=== PATIENT | male | born 1950 | race African-American/Black ===

== ENCOUNTER → 2016-10-06 | Outpatient (CLI) | payer BC ==
[~2016-10-06] MED LIST: AMLO5TAB4 PO; CHOL100046 PO; MILK140C2 PO
== END | disposition home or self-care (01) ==
LOC: MAMMO 10:08
PROVIDERS: ATTEND Family Medicine Adult Medicine
DX: M81.0 Age-related osteoporosis without current pathological fracture (principal)
CPT/HCPCS: 77080

== ENCOUNTER → 2016-11-10 | Outpatient (CLI) | payer BC | END | disposition home or self-care (01) | LOC: RAD 11:44 | PROVIDERS: ATTEND Family Medicine Adult Medicine | DX: J98.11 Atelectasis (principal); J44.9 Chronic obstructive pulmonary disease, unspecified | CPT/HCPCS: 71020 ==

== ENCOUNTER 2017-04-28 19:30 | Emergency (ER) | payer BC, MEDICARE ==
[~2017-04-28] VITALS: Ht 167.6 cm; Wt 62.0 kg
[2017-04-28 23:11] LABS: BASOPHILS % 0.6 % (0.0-2.0); EOSINOPHILS % 3.2 % (0.0-5.0); HEMATOCRIT. 23.8 % (42.0-52.0); HEMOGLOBIN. 7.4 g/dL (14.0-18.0); LYMPHOCYTES % 31.4 % (20.0-50.0); MEAN CORPUSCULAR HEMOGLOBIN 23.2 pg (28.0-32.0); MEAN CORPUSCULAR VOLUME 74.7 fL (80.0-94.0); MEAN PLATELET VOLUME 8.1 fl (7.4-10.4); MONOCYTES % 10.7 % (2.0-8.0); NEUTROPHILS % 54.1 % (40.0-76.0); PLATELET 329 x1000/uL (130-400); RED BLOOD CELL COUNT 3.19 mill/uL (4.7-6.1); RED CELL DISTRIBUTION WIDTH 16.8 % (11.6-14.6)
[2017-04-28 23:16] LABS: D-DIMER 0.21 mg/L FEU (<0.50); PARTIAL THROMBOPLASTIN TIME 24.6 sec (23.4-31.0); PROTHROMBIN TIME 10.6 sec (9.4-11.6)
[2017-04-28 23:19] LABS: CARBON DIOXIDE 26 mEq/L (21-32); CHLORIDE 107 mEq/L (98-107); ETHANOL BLOOD < 10 mg/dL
[2017-04-28 23:22] LABS: TROPONIN I < 0.02 ng/mL (0.00-0.04)
[2017-04-29 00:49] VITALS: BP 119/84
== END 2017-04-29 01:41 | disposition home or self-care (01) ==
LOC: ER 21:42
DX: D64.9 Anemia, unspecified (principal)
CPT/HCPCS: 36415; 71010; 80053; 83880; 84484; 85025; 85044; 85379; 85610; 85730; 86850; 86900; 86901; 93005; 99285; G0482

== ENCOUNTER 2017-05-07 14:19 | Inpatient (IN) | payer MEDICARE ==
[~2017-05-07] VITALS: Ht 167.6 cm; Wt 60.8 kg
[2017-05-07] MEDS ORDERED: SODIUM CHLORIDE 0.9% 1,000 ML IV ONE (14:46)
[2017-05-07 15:54] LABS: CHLORIDE 110 mEq/L (98-107)
[2017-05-07 15:55] LABS: INR 1.1
[2017-05-07 15:58] LABS: BASOPHILS % 0.8 % (0.0-2.0); EOSINOPHILS % 0.9 % (0.0-5.0); LYMPHOCYTES % 12.6 % (20.0-50.0); MEAN CORPUSCULAR HEMOGLOBIN 23.1 pg (28.0-32.0); MEAN CORPUSCULAR VOLUME 74.2 fL (80.0-94.0); MEAN PLATELET VOLUME 8.1 fl (7.4-10.4); MONOCYTES % 8.9 % (2.0-8.0); NEUTROPHILS % 76.8 % (40.0-76.0); PLATELET 349 x1000/uL (130-400); RED BLOOD CELL COUNT 2.76 mill/uL (4.7-6.1); RED CELL DISTRIBUTION WIDTH 17.2 % (11.6-14.6)
[2017-05-07 16:00] LABS: CARBON DIOXIDE 24 mEq/L (21-32)
[2017-05-07 16:02] LABS: HEMATOCRIT. 20.5 % (42.0-52.0); HEMOGLOBIN. 6.4 g/dL (14.0-18.0)
[2017-05-07] MEDS ORDERED: SODIUM CHLORIDE 0.9% 1,000 ML IV SCH (16:54)
[2017-05-07] MEDS ORDERED: ONDANSETRON HCL 4MG/2ML VIAL IV PRN (18:00)
[2017-05-07] MEDS ORDERED: ACETAMINOPHEN 325MG TABLET PO PRN (18:00)
[2017-05-07] MEDS ORDERED: CLONIDINE 0.1MG TABLET PO PRN (18:00)
[2017-05-07 18:57] LABS: CLARITY URINE CLEAR (CLEAR); COLOR URINE YELLOW (YELLOW); GLUCOSE URINE NEGATIVE (NEGATIVE); KETONES URINE NEGATIVE (NEGATIVE); LEUKOCYTE ESTERASE URINE NEGATIVE (NEGATIVE); NITRITE URINE NEGATIVE (NEGATIVE); OCCULT BLOOD URINE NEGATIVE (NEGATIVE); PH URINE 5.5 (4.5-8.0); PROTEIN URINE NEGATIVE (NEGATIVE); SPECIFIC GRAVITY URINE 1.018 (1.005-1.030); UROBILINOGEN URINE 0.2 E.U./dL (0.2-1.0)
[2017-05-07 18:59] LABS: TOTAL IRON BINDING CAPACITY 430 ug/dL (250-450)
[2017-05-07] MEDS ORDERED: MORPHINE SULFATE 10 MG/ML CPJ IV PRN (18:59)
[2017-05-07] MEDS ORDERED: DEXT 5%/0.45% NACL 1000ML 1,000 ML IV SCH (19:00)
[2017-05-07 19:30] VITALS: BP 140/77
[2017-05-07 20:00] VITALS: BP 129/59
[2017-05-07] MEDS ORDERED: AMLO10TA80 PO (23:02)
[2017-05-07] MEDS ORDERED: FERR134T2 PO (23:02)
[2017-05-07 23:12] LABS: HEMOGLOBIN 7.5 g/dL (14.0-18.0)
[2017-05-08 00:53] VITALS: BP 132/69
[2017-05-08 01:08] VITALS: BP 133/61
[2017-05-08 08:00] VITALS: BP 127/65
[2017-05-08 12:00] VITALS: BP 133/70
[2017-05-08] MEDS ORDERED: BARIUM SULFATE(VOLUMEN) 450 ML ORAL.SUSP ONE (12:11)
[2017-05-08] MEDS ORDERED: IOHEXOL-350 100 ML BOTTLE ONE (12:11)
[2017-05-08 14:32] LABS: BASOPHILS % 0.9 % (0.0-2.0); EOSINOPHILS % 1.9 % (0.0-5.0); HEMATOCRIT. 28.6 % (42.0-52.0); HEMOGLOBIN. 9.1 g/dL (14.0-18.0); LYMPHOCYTES % 21.4 % (20.0-50.0); MEAN CORPUSCULAR HEMOGLOBIN 24.4 pg (28.0-32.0); MEAN CORPUSCULAR VOLUME 76.1 fL (80.0-94.0); MEAN PLATELET VOLUME 8.1 fl (7.4-10.4); MONOCYTES % 10.6 % (2.0-8.0); NEUTROPHILS % 65.2 % (40.0-76.0); PLATELET 334 x1000/uL (130-400); RED BLOOD CELL COUNT 3.76 mill/uL (4.7-6.1); RED CELL DISTRIBUTION WIDTH 17.4 % (11.6-14.6)
[2017-05-08 14:35] LABS: CARBON DIOXIDE 24 mEq/L (21-32); CHLORIDE 110 mEq/L (98-107); HDL CHOLESTEROL 35 mg/dL (40-59); LDL CHOLESTEROL 92 mg/dL (5-100); TROPONIN I < 0.02 ng/mL (0.00-0.04)
[2017-05-08 16:00] VITALS: BP 122/69
[2017-05-08 16:09] LABS: HEMATOCRIT 33.5 % (42.0-52.0); HEMOGLOBIN 10.2 g/dL (14.0-18.0)
[2017-05-08 18:32] VITALS: BP 122/69
== END 2017-05-08 18:55 | disposition home or self-care (01) | DRG 378 ==
LOC: ER 14:19 → 6WST 16:50 → ENRESERV 17:11
PROVIDERS: ADMIT Internal Medicine Nephrology; ATTEND Internal Medicine Nephrology
PROC: 30233N1 Transfusion of Nonautologous Red Blood Cells into Peripheral Vein, Percutaneous Approach (ICD-10-PCS; principal; 2017-05-07)
DX: K55.21 Angiodysplasia of colon with hemorrhage (principal); D62 Acute posthemorrhagic anemia; E27.8 Other specified disorders of adrenal gland; K92.2 Gastrointestinal hemorrhage, unspecified; B18.2 Chronic viral hepatitis C; D50.0 Iron deficiency anemia secondary to blood loss (chronic); E78.00 Pure hypercholesterolemia, unspecified; I10 Essential (primary) hypertension; Z79.899 Other long term (current) drug therapy; Z92.3 Personal history of irradiation; Z85.048 Personal history of other malignant neoplasm of rectum, rectosigmoid junction, and anus; Z92.21 Personal history of antineoplastic chemotherapy; Z90.49 Acquired absence of other specified parts of digestive tract
CPT/HCPCS: 36415; 74176; 74177; 80053; 80061; 81003; 83540; 83550; 84484; 85014; 85018; 85025; 85610; 86850; 86900; 86920; 87040; 87086; 93005; 93306; 93970; 96360; 96361; 97162; 99291; J7030; J7040; P9016; Q9967

== ENCOUNTER 2023-04-16 15:40 | Emergency (ER) | payer MEDICARE ==
[~2023-04-16] VITALS: Ht 167.6 cm; Wt 57.0 kg
[~2023-04-16 15:40] MED LIST changes: +AMLO10TA80 PO; -AMLO5TAB4 PO; +FERR134T2 PO; -MILK140C2 PO
[2023-04-16 15:43] VITALS: O2SAT 99
[2023-04-16 16:27] LABS: BASOPHILS % 0.9 % (0.0-2.0); EOSINOPHILS % 3.6 % (0.0-5.0); HEMATOCRIT. 39.1 % (42.0-52.0); LYMPHOCYTES % 23.6 % (20.0-50.0); MEAN CORPUSCULAR HEMOGLOBIN 29.8 pg (28.0-32.0); MEAN CORPUSCULAR HGB CONC 33.3 g/dL (31.0-37.0); MEAN CORPUSCULAR VOLUME 89.3 fL (80.0-94.0); MEAN PLATELET VOLUME 9.3 fl (7.4-10.4); MONOCYTES % 12.6 % (2.0-8.0); NEUTROPHILS % 59.3 % (40.0-76.0); PLATELET 240 x1000/uL (130-400); RED BLOOD CELL COUNT 4.38 mill/uL (4.7-6.1); RED CELL DISTRIBUTION WIDTH 16.4 % (11.6-14.6)
[2023-04-16 16:35] LABS: CHLORIDE 108 mEq/L (98-107); INDEX HEMOLYSI 2 (1-3); INDEX ICTERIC 1 (1-4); INDEX LIPEMIC 1 (1-3); SODIUM 138 mEq/L (136-145)
[2023-04-16 16:45] LABS: ALANINE AMINOTRANSFERASE 21 IU/L (13-61); ALBUMIN 3.7 g/dL (3.4-5.0); ASPARTATE AMINOTRANSFERASE 26 IU/L (15-37); BILIRUBIN TOTAL 0.2 mg/dL (0.1-1.0); CALCIUM 8.8 mg/dL (8.5-10.1); CARBON DIOXIDE 27 mEq/L (21-32); CREATININE 0.9 mg/dL (0.6-1.3); GLUCOSE 81 mg/dL (70-105); NT PRO B-TYPE NATRIURETIC PEP 157 pg/mL (5-125); PROTEIN TOTAL 7.6 g/dL (6.0-8.3); TROPONIN I HIGH SENSITIVITY 12 ng/L (<78); UREA NITROGEN BLOOD 15 mg/dL (7-21)
[2023-04-16] MEDS ORDERED: DOCUSATE SODIUM 100MG CAPSULE PO PRN (16:45)
[2023-04-16] MEDS ORDERED: CLONIDINE 0.1MG TABLET PO PRN (16:45)
[2023-04-16] MEDS ORDERED: IPRATROPIUM/ALBUTEROL 0.5-3(2.5)MG/3ML NEB HHN PRN (16:45)
[2023-04-16] MEDS ORDERED: ONDANSETRON HCL 4MG/2ML INJ IV PRN (16:45)
[2023-04-16] MEDS ORDERED: MAGNESIUM/ALUMINUM HYDROXIDE/SIMETHICONE 30ML UDC PO PRN (16:45)
[2023-04-16] MEDS ORDERED: ACETAMINOPHEN 325MG TABLET PO PRN ×2 (16:45)
[2023-04-16] MEDS ORDERED: GUAIFENESIN 200MG/10ML SUGAR FREE UDC PO PRN (16:45)
[2023-04-16 17:36] LABS: PHOSPHORUS 3.7 mg/dL (2.5-4.9)
[2023-04-16 17:37] LABS: PROTHROMBIN TIME 10.8 sec (9.6-11.0)
[2023-04-16] MEDS ORDERED: AMLODIPINE 10MG TABLET PO SCH (18:00)
[2023-04-16] MEDS ORDERED: AMLO1CAP PO (18:04)
[2023-04-16 18:11] LABS: FOLIC ACID (FOLATE) SERUM 8.3 ng/mL (>5.38)
[2023-04-16 20:23] VITALS: BP 155/81; PULSE 63; RESP 18; TEMP 98.7
== END 2023-04-16 20:40 | disposition left against medical advice (07) ==
LOC: ER 15:40 → CANBEDREQ 20:24 → ER 20:40
DX: I44.2 Atrioventricular block, complete (principal); D64.9 Anemia, unspecified; E78.00 Pure hypercholesterolemia, unspecified; I10 Essential (primary) hypertension
CPT/HCPCS: 36415; 71045; 80053; 82607; 82746; 83036; 83540; 83550; 83735; 83880; 84100; 84484; 85025; 93005; 93970; 99291

== ENCOUNTER → 2023-05-21 | Day surgery (SDC) | payer MEDICARE ==
[~2023-05-21] VITALS: Ht 167.6 cm; Wt 56.2 kg
[~2023-05-21] MED LIST changes: +ACETAMINOPHEN 325MG TABLET PO PRN; -AMLO10TA80 PO; +AMLO1CAP PO; +AMLO1TAB98 PO; +ASPI-1497 PO; +ATROPINE SULFATE 1MG/10ML SYR IV PRN; +DIPHENHYDRAMINE 50MG/ML VIAL ONE; +FENTANYL CITRATE/PF 50MCG/ML 2ML VIAL ONE; -FERR134T2 PO; +HEPARIN 1000 UNITS/ML 10ML ONE; +IODIXANOL 320MG/ML 100 ML BOTTLE IV ONE; +LIDOCAINE HCL 1% 20ML VIAL (Pyxis) INJ ONE; +MIDAZOLAM HCL 2 MG/2 ML VIAL ONE; +VERAPAMIL HCL 2.5 MG/1 ML 2ML VIAL IV ONE
[2023-05-21 07:21] LABS: BASOPHILS % 0.6 % (0.0-2.0); DIFFERENTIAL COMMENT 0; EOSINOPHILS % 4.5 % (0.0-5.0); HEMATOCRIT. 40.5 % (42.0-52.0); HEMOGLOBIN. 13.5 g/dL (14.0-18.0); LYMPHOCYTES % 27.2 % (20.0-50.0); MEAN CORPUSCULAR HEMOGLOBIN 30.1 pg (28.0-32.0); MEAN CORPUSCULAR HGB CONC 33.3 g/dL (31.0-37.0); MEAN CORPUSCULAR VOLUME 90.1 fL (80.0-94.0); MEAN PLATELET VOLUME 9.2 fl (7.4-10.4); MONOCYTES % 12.3 % (2.0-8.0); NEUTROPHILS % 55.4 % (40.0-76.0); PLATELET 226 x1000/uL (130-400); RED BLOOD CELL COUNT 4.49 mill/uL (4.7-6.1); WHITE BLOOD COUNT 7.6 x1000/uL (4.5-11.0)
[2023-05-21 07:24] LABS: PARTIAL THROMBOPLASTIN TIME 29.2 sec (23.4-31.0); PROTHROMBIN TIME 10.6 sec (9.6-11.0)
[2023-05-21 08:46] LABS: CALCIUM 9.1 mg/dL (8.5-10.1); CHLORIDE 109 mEq/L (98-107); INDEX HEMOLYSI 1 (1-3); INDEX ICTERIC 1 (1-4); INDEX LIPEMIC 1 (1-3); POTASSIUM 4.4 mEq/L (3.5-5.1); SODIUM 142 mEq/L (136-145)
[2023-05-21 08:52] LABS: GLUCOSE 106 mg/dL (70-105); UREA NITROGEN BLOOD 12 mg/dL (7-21)
[2023-05-21 09:35] LABS: CARBON DIOXIDE 28 mEq/L (21-32)
== END | disposition home or self-care (01) ==
LOC: CCL 06:24
PROVIDERS: ATTEND Internal Medicine
DX: I47.20 Ventricular tachycardia, unspecified (principal); I44.2 Atrioventricular block, complete; E78.5 Hyperlipidemia, unspecified; I35.1 Nonrheumatic aortic (valve) insufficiency; I48.91 Unspecified atrial fibrillation; I11.9 Hypertensive heart disease without heart failure; I25.2 Old myocardial infarction; Z86.73 Personal history of transient ischemic attack (TIA), and cerebral infarction without residual deficits; Z79.82 Long term (current) use of aspirin; Z79.899 Other long term (current) drug therapy; Z98.890 Other specified postprocedural states; Z80.3 Family history of malignant neoplasm of breast; Z72.89 Other problems related to lifestyle
CPT/HCPCS: 80048; 85025; 85610; 85730; 36415; 93458; 93308; 93005; C1893; C1769 ×2; J3010; Q9967; J1200; J1644 ×2; J3490 ×2; J2250; Z7610 ×8; C1887; 99152; G0500